=== PATIENT | male | born 1970 | race Caucasian/White ===

== ENCOUNTER 2023-03-08 05:50 | Day surgery (SDC) | payer BC ==
[~2023-03-08] VITALS: Ht 172.7 cm; Wt 81.6 kg
[2023-03-08] MEDS ORDERED: ceFAZolin SODIUM 2 GM in NS 100 ML IV ONE (07:00)
[2023-03-08] MEDS ORDERED: SUCCINYLCHOLINE CHLORIDE 20 MG/ML(QUELICIN) ONE (07:55)
[2023-03-08] MEDS ORDERED: SEVOFLURANE 15 MIN GAS INH ONE (07:55)
[2023-03-08] MEDS ORDERED: BUPIVACAINE /PF 0.25% 30 ML VIAL INJ ONE (07:55)
[2023-03-08] MEDS ORDERED: ROCURONIUM BROMIDE 10 MG/ML (ZEMURON) ONE (07:55)
[2023-03-08] MEDS ORDERED: NS IRRIG SOLN 1000 ML IR ONE (07:55)
[2023-03-08] MEDS ORDERED: MIDAZOLAM HCL/PF 2 MG/2 ML SYRINGE ONE (07:55)
[2023-03-08] MEDS ORDERED: LIDOCAINE/EPI 1% 1:100000 20 ML VIAL ONE (07:55)
[2023-03-08] MEDS ORDERED: PROPOFOL 200MG/ 20ML VIAL (DIPRIVAN) IV ONE (07:55)
[2023-03-08] MEDS ORDERED: ONDANSETRON HCL 4 MG/2 ML VIAL ONE (07:55)
[2023-03-08] MEDS ORDERED: fentaNYL CITRATE/PF 100 MCG/2 ML AMP ONE (07:55)
[2023-03-08] MEDS ORDERED: METOCLOPRAMIDE HCL 10 MG/2 ML VIAL IVP PRN (08:30)
[2023-03-08] MEDS ORDERED: HYDROmorphone 1 MG/ML INJ. CARTRIDGE IVP PRN (08:30)
[2023-03-08] MEDS ORDERED: IBUPROFEN 600 MG TABLET PO ONE (08:30)
[2023-03-08] MEDS ORDERED: KETOROLAC TROMETHAMINE 30 MG VIAL IVP PRN (08:30)
[2023-03-08] MEDS ORDERED: ONDANSETRON HCL 4 MG/2 ML VIAL IVP PRN (08:30)
[2023-03-08] MEDS ORDERED: HYDROmorphone 1 MG/ML INJ. CARTRIDGE ONE (10:34)
[2023-03-08 11:19] VITALS: O2SAT 97
[2023-03-08 14:23] VITALS: BP_SYST 128; PULSE 66; RESP 20
== END 2023-03-08 12:06 | disposition home or self-care (01) ==
LOC: SDS 05:50 → SMU 05:50 → SDS 12:06
PROVIDERS: ATTEND Surgery
DX: K42.0 Umbilical hernia with obstruction, without gangrene (principal); D17.23 Benign lipomatous neoplasm of skin and subcutaneous tissue of right leg; L92.8 Other granulomatous disorders of the skin and subcutaneous tissue; E11.9 Type 2 diabetes mellitus without complications; I10 Essential (primary) hypertension; E78.5 Hyperlipidemia, unspecified; Z87.891 Personal history of nicotine dependence; Z79.899 Other long term (current) drug therapy
CPT/HCPCS: 87081; 49592; 11406; 12031; 82962; 88302; 88304; J3490; J3465; J2405; J2704; J0330; J3010; J1170